=== PATIENT | female | born 1945 | race Caucasian/White ===

== ENCOUNTER 2016-08-28 08:36 | Emergency (ER) | payer OTHER ==
[2016-08-28] MEDS ORDERED: LIDOCAINE 5% 1 EA PATCH TD ONE (09:22)
--- NOTE | 2016-08-28 09:23 | EDPHY ---
H & P Stated Complaint: L side pain since 3AM. Denies trauma/injury. Time Seen by Provider: 08/28/16 08:45 HPI/ROS: CHIEF COMPLAINT: Left flank pain HISTORY OF PRESENT ILLNESS: This is a 70-year-old female with a history of breast cancer who is on tamoxifen. She is reportedly cancer-free with a mammogram scheduled this month. She presents today with 4-5 days of intermittent left flank pain. The pain has been increasing over the last few days and became severe yesterday. She describes it as sharp. It is located in the left flank/posterior lateral lower ribcage area. She has not seen any skin lesions. The pain is worsened by taking a deep breath or by putting weight on her left leg. She denies numbness, weakness, or bowel or bladder changes. She has not had any recent trauma. She did fall in a parking lot 2 weeks ago but had no back pain at the time. She denies chest pain or shortness of breath. REVIEW OF SYSTEMS: A ten point review of systems was performed and is negative with the exception of the items mentioned in the HPI. In addition she reports chronic constipation. She last moved her bowels 2 days ago. - Personal History Current Tetanus Diphtheria and Acellular Pertussis (TDAP): Yes Tetanus Vaccine Date: within 10 years - Medical/Surgical History Hx Asthma: No Hx Chronic Respiratory Disease: No Hx Diabetes: No Hx Cardiac Disease: No Hx Renal Disease: No Hx Cirrhosis: No Hx Alcoholism: No Hx HIV/AIDS: No Hx Splenectomy or Spleen Trauma: No Other PMH: Hypothyroidism. R breast cancer with lumpectomy and lymph node removal on tamoxifen - Social History Smoking Status: Former smoker (Quit over 30 years ago.) Alcohol Use: Occasionally (Wine with dinner.) Additional Social History: She lives with her . They are both retired. 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 - Physical Exam Exam: General Appearance: Alert. Vital signs reviewed. Blood pressure 147/89. Afebrile. Eyes: Pupils equal and round, no conjunctival injection, no discharge. Anicteric. ENT, Mouth: Mucous membranes are moist, no oropharyngeal erythema or edema. Neck: No lymphadenopathy, supple. Respiratory: Lungs are clear to auscultation; no wheezes, rales, or rhonchi. Cardiovascular: Regular rate and rhythm; no murmur, rub, or gallop. Thorax: She has tenderness over the posterior lateral left lower ribcage extending lower onto her flank region. No crepitus. Gastrointestinal: Abdomen is soft and nontender, no masses or organomegaly, bowel sounds normal. Skin: Warm and dry, no rashes on exposed skin, normal color. Specifically, no vesicular or other lesions noted on the left back or abdomen. Back: Nontender to palpation over the thoracolumbar spine. No CVAT. Extremities: No lower extremity edema, no calf tenderness or swelling. Neurological: Alert and oriented. Moving all four extremities easily and equally. Strength is 5 over 5 bilaterally with testing of all major motor groups in the lower extremities. Sensation is intact to light touch over both lower extremities. Gait is normal. Psychiatric: Normal affect. Constitutional: Initial Vital Signs Temperature (C) 36.4 C 08/28/16 08:40 Heart Rate 88 08/28/16 08:40 Respiratory Rate 18 08/28/16 08:40 Blood Pressure 147/89 H 08/28/16 08:40 O2 Sat (%) 98 08/28/16 08:40 O2 Delivery Mode Room Air Allergies/Adverse Reactions: nitrofurantoin macrocrystalline [From Macrodantin] Allergy (Severe, Verified 06/11 08:53) JAUNDICE Sulfa (Sulfonamide Antibiotics) Allergy (Severe, Verified 08/28/16 08:53) JAUNDICE adhesive tape Allergy (Intermediate, Verified 08/28/16 08:53) TEARS SKIN OFF ibuprofen Allergy (Intermediate, Verified 08/28/16 08:53) BACKACHE/STOMACH ACHE CRAB Allergy (Severe, Uncoded 08/28/16 08:53) Anaphylaxis LOBSTER Allergy (Severe, Uncoded 08/28/16 08:53) Anaphylaxis Home Medications: Medication Instructions Recorded Levothyroxine Sodium 08/28/16 Lidocaine 5% [Lidoderm 5% Patch 1 ea TD DAILY PRN #7 patch 08/28/16 (*)] Tamoxifen Citrate 08/28/16 Medical Decision Making - Diagnostics Imaging Results: Imaging Impressions Chest X-Ray 08/28/16 09:22 Impression: 1. COPD. 2. Fiducials in the right middle lobe. 3. No definite pneumonia, pleural effusion or pneumothorax. 4. Recommend follow-up CT chest. Findings and recommendations discussed with Emergency Department physician, Heather Mejia at 0946 hour, 08/28/2016. Final report concurs with initial preliminary interpretation. Abdomen/Pelvis CT 08/28/16 11:05 Impression: 1. No nephrolithiasis or hydronephrosis. 2. Suspect sacral metastasis to S2 and S3. 3. Recommend MRI of the sacrum and consider nuclear medicine whole body PET scan imaging for further evaluation. Attention: This CT examination is specifically designed to evaluate patients who are clinically suspected of having acute obstructive uropathy. This examination does not use radiographic contrast, and as such, provides only a limited evaluation of the abdomen, pelvis and retroperitoneum. If there is further clinical suspicion for pathological conditions other than obstructive uropathy, a complete CT evaluation of the abdomen and pelvis utilizing intravenous, oral, and rectal contrast should be considered. Findings and recommendations discussed with Emergency Department physician, Heather Mejia at 1150 hour, 08/28/2016. Final report concurs with initial preliminary interpretation. Findings and recommendations discussed with Dr. Kishor Aguiar at 1300 hour, 08/28/2016. Final report concurs with initial preliminary interpretation. Imaging: Discussed imaging studies w/ pool servicer Radiologist ED Course/Re-evaluation: This is a 70-year-old female with waxing and waning left flank pain. I do not see evidence of shingles on exam. She has had shingles shot (in fact, she has had two). She has no history of kidney stones but portions of her history or suggestive of ureterolithiasis. Urinalysis will be obtained. She describes the pain as pleuritic and pulmonary embolus is also a possibility. There is nothing in her history sit to suggest an infectious process. A chest x-ray is being obtained--I would like to assess for rib abnormality, such as bony metastases, and for pneumothorax. Labs are sent. She does not want to take opiate pain medication at this point in time. A lidocaine patch is being placed. Chest x-ray does not show rib abnormality such as fracture or metastatic lesion. These are not formal rib films. No infiltrate. No pneumothorax. The chest x-ray does not explain her pain. She has a modified Wells score of 0, making pulmonary embolism unlikely. D- dimer is within the normal range. I do not feel that CTA is warranted in this setting. Re-evaluated at 10:50 a.m.. She is now able to lie on the gurney. She reports some relief with the lidocaine patch. CBC, chemistries, and UA reviewed. There is no blood in her urine. However, 15% of people with kidney stones do not have hematuria. There is no evidence of urinary tract infection so I do not suspect pyelonephritis. She has agreed to undergo CT scanning of the abdomen and pelvis to assess for CT scan. We discussed this study, including the fact that it involves radiation. I spoke with Dr. Tristin Carlin about the CT scan. No evidence of kidney stone. However, there is a sacral mass, soft tissue, at S2-S3 with a leftward orientation. I relayed these findings to the patient and her . This mass is suspicious for metastatic disease. She is offered hospitalization for pain control and further workup of this soft tissue mass but prefers to return home. She does not want a prescription for opiate pain medication. She would like to continue with lidocaine patches and will also use Tylenol. I have advised her to follow up with Dr. Aguiar and I have apprised him of her visit today. She will call his office tomorrow to schedule an appointment. Differential Diagnosis: Flank pain including but not limited to malignancy, musculoskeletal causes, kidney stone, pyelonephritis, shingles, and intra-abdominal causes such as diverticulitis and appendicitis. - Data Points Laboratory Results: Laboratory Results 08/28/16 09:31 08/28/16 09:31 08/28/16 08/28/16 08/28/16 09:55 09:31 09:31 WBC RBC Hgb Hct MCV MCH MCHC RDW Plt Count MPV Neut % (Auto) Lymph % (Auto) Spalding % (Auto) Eos % (Auto) Baso % (Auto) Nucleat RBC Rel Count Absolute Neuts (auto) Absolute Lymphs (auto) Absolute Monos (auto) Absolute Eos (auto) Absolute Basos (auto) Absolute Nucleated RBC Immature Gran % Immature Gran # D-Dimer 0.30 ug/mLFEU ug/mLFEU (0.00-0.50) Sodium 135 mEq/L mEq/L (134-144) Potassium 4.8 mEq/L mEq/L (3.5-5.2) Chloride 102 mEq/L mEq/L (97-110) Carbon Dioxide 18 mEq/l L mEq/l (22-31) Anion Gap 15 mEq/L mEq/L (8-16) BUN 8 mg/dL mg/dL (7-23) Creatinine 0.9 mg/dL mg/dL (0.6-1.0) Estimated GFR > 60 Glucose 96 mg/dL mg/dL (70-100) Calcium 9.3 mg/dL mg/dL (8.5-10.4) Urine Color YELLOW Urine Appearance CLEAR Urine pH 6.5 (5.0-7.5) Ur Specific Treichlers <= 1.005 (1.002-1.030) Urine Protein NEGATIVE (NEGATIVE) Urine Ketones 1+ H (NEGATIVE) Urine Blood NEGATIVE (NEGATIVE) Urine Nitrate NEGATIVE (NEGATIVE) Urine Bilirubin NEGATIVE (NEGATIVE) Urine Urobilinogen 0.2 EU EU (0.2-1.0) Ur Leukocyte Esterase NEGATIVE (NEGATIVE) Urine Glucose NEGATIVE (NEGATIVE) 08/28/16 09:31 WBC 7.36 10^3/uL 10^3/uL (3.80-9.50) RBC 3.85 10^6/uL L 10^6/uL (4.18-5.33) Hgb 12.8 g/dL g/dL (12.6-16.3) Hct 36.7 % L % (38.0-47.0) MCV 95.3 fL fL (81.5-99.8) MCH 33.2 pg pg (27.9-34.1) MCHC 34.9 g/dL g/dL (32.4-36.7) RDW 12.8 % % (11.5-15.2) Plt Count 312 10^3/uL 10^3/uL (150-400) MPV 9.6 fL fL (8.7-11.7) Neut % (Auto) 65.4 % % (39.3-74.2) Lymph % (Auto) 21.3 % % (15.0-45.0) Spalding % (Auto) 10.3 % % (4.5-13.0) Eos % (Auto) 1.9 % % (0.6-7.6) Baso % (Auto) 0.7 % % (0.3-1.7) Nucleat RBC Rel Count 0.0 % % (0.0-0.2) Absolute Neuts (auto) 4.81 10^3/uL 10^3/uL (1.70-6.50) Absolute Lymphs (auto) 1.57 10^3/uL 10^3/uL (1.00-3.00) Absolute Monos (auto) 0.76 10^3/uL 10^3/uL (0.30-0.80) Absolute Eos (auto) 0.14 10^3/uL 10^3/uL (0.03-0.40) Absolute Basos (auto) 0.05 10^3/uL 10^3/uL (0.02-0.10) Absolute Nucleated RBC 0.00 10^3/uL 10^3/uL (0-0.01) Immature Gran % 0.4 % % (0.0-1.1) Immature Gran # 0.03 10^3/uL 10^3/uL (0.00-0.10) D-Dimer Sodium Potassium Chloride Carbon Dioxide Anion Gap BUN Creatinine Estimated GFR Glucose Calcium Urine Color Urine Appearance Urine pH Ur Specific Treichlers Urine Protein Urine Ketones Urine Blood Urine Nitrate Urine Bilirubin Urine Urobilinogen Ur Leukocyte Esterase Urine Glucose Medications Given: Discontinued Medications Lidocaine (Lidoderm 5%) 1 ea TD EDNOW ONE Stop: 08/28/16 09:23 Last Admin: 08/28/16 09:40 Dose: 1 ea Departure - Departure Disposition: Home, Routine, Self-Care Clinical Impression: Flank pain, Sacral mass Condition: Good Instructions: Flank Pain (ED) Additional Instructions: As we discussed, this CT scan shows a soft tissue mass involving your sacrum. I do not know whether this is what is causing your pain but it certainly seems like a possibility. I recommend that you call Dr. Aguiar's office tomorrow and schedule a follow-up or other imaging as recommended. Continue with lidocaine patches as prescribed. I also recommend that you take Tylenol, acetaminophen, 650 mg every, every 4-6 hours while awake. See if this helps your pain. If you have any new or concerning symptoms--fever, new numbness or weakness in your legs, change in your bowels or bladder, unbearable pain--please return for a re-evaluation. Referrals: Jose Shahid MD [Primary Care Provider] - As per Instructions Kishor Aguiar MD [Medical Doctor] - As per Instructions Prescriptions: Lidocaine 5% [Lidoderm 5% Patch (*)] 1 ea TD DAILY PRN #7 patch PRN Reason: flank pain
[2016-08-28 09:36] LABS: % IMMATURE GRANULYOCYTES 0.4 % (0.0-1.1); ABSOLUTE IMMATURE GRANULOCYTES 0.03 10^3/uL (0.00-0.10); ADD DIFF? NO; ADD MORPH? NO; ADD SCAN? NO; ATYPICAL LYMPHOCYTE FLAG 20 (0-99); FRAGMENT RBC FLAG 0 (0-99); HEMATOCRIT 36.7 % (38.0-47.0); HEMOGLOBIN 12.8 g/dL (12.6-16.3); LEFT SHIFT FLG 0 (0-99); LIPEMIA HEMOLYSIS FLAG 90 (0-99); MEAN CELL HEMOGLOBIN 33.2 pg (27.9-34.1); MEAN CELL HEMOGLOBIN CONCENTR. 34.9 g/dL (32.4-36.7); MEAN CELL VOLUME 95.3 fL (81.5-99.8); MEAN PLATELET VOLUME 9.6 fL (8.7-11.7); PLATELET CLUMPS FLAG 0 (0-99); PLATELET COUNT 312 10^3/uL (150-400); RED BLOOD CELL COUNT 3.85 10^6/uL (4.18-5.33); RED CELL DISTRIBUTION WIDTH 12.8 % (11.5-15.2)
[2016-08-28 09:49] LABS: ANION GAP 15 mEq/L (8-16); CALCIUM 9.3 mg/dL (8.5-10.4); CARBON DIOXIDE 18 mEq/l (22-31); CHLORIDE 102 mEq/L (97-110); CREATININE 0.9 mg/dL (0.6-1.0); GLOMERULAR FILTRATION RATE > 60; GLUCOSE 96 mg/dL (70-100); POTASSIUM 4.8 mEq/L (3.5-5.2); SODIUM 135 mEq/L (134-144)
[2016-08-28 10:02] LABS: COLOR YELLOW; LEUKOCYTE ESTERASE,URINE NEGATIVE (NEGATIVE); NITRITE,URINE NEGATIVE (NEGATIVE); PH,URINE 6.5 (5.0-7.5)
[2016-08-28 12:32] VITALS: BP 149/90; PULSE 81; RESP 16; TEMP 98.6; O2SAT 95
[2016-08-28] MEDS ORDERED: PATCH REMOVAL 1 EA PATCH TD SCH (21:00)
== END 2016-08-28 12:42 | disposition home or self-care (01) ==
LOC: CED 08:36
DX: R22.2 Localized swelling, mass and lump, trunk (principal); Z85.3 Personal history of malignant neoplasm of breast; Z87.891 Personal history of nicotine dependence
CPT/HCPCS: 71020-PO; 74176-PO; 80048-PO; 81003-PO; 85025-PO; 85378-PO

== ENCOUNTER → 2016-08-30 | Outpatient (CLI) | payer OTHER | LOC: FIMAGING 08:32 | PROVIDERS: ATTEND Internal Medicine Hematology & Oncology | DX: N64.4 Mastodynia (principal); Z85.3 Personal history of malignant neoplasm of breast | CPT/HCPCS: G0204 ==

== ENCOUNTER → 2016-09-20 | Day surgery (SDC) | payer OTHER ==
[~2016-09-20] MED LIST: ACETAMINOPHEN 325 MG TAB PO PRN; BUPIVACAINE 0.25% 30 ML SDV ONE; BUPIVACAINE 0.5% 10 ML SDV ONE; FLUMAZENIL 0.5 MG/5 ML MDV IVP ONE; LIDOCAINE 1% 300 MG/30 ML SDV ONE; MIDAZOLAM 2 MG/2 ML VIAL ONE; NALOXONE HCL 0.4 MG/ML INJ ONE; ONDANSETRON 4 MG/2 ML VIAL IVP PRN; fentaNYL 100 MCG/2 ML INJ ONE
[2016-09-20 11:31] VITALS: BP 154/66; O2SAT 95
== END | disposition home or self-care (01) ==
LOC: FIMAGING 07:44
PROVIDERS: ATTEND Internal Medicine Hematology & Oncology
PROC: 0QB13ZX Excision of Sacrum, Percutaneous Approach, Diagnostic (ICD-10-PCS; principal; 2016-09-20 10:30)
DX: C79.51 Secondary malignant neoplasm of bone (principal); Z85.3 Personal history of malignant neoplasm of breast; Z85.858 Personal history of malignant neoplasm of other endocrine glands; Z87.891 Personal history of nicotine dependence
CPT/HCPCS: J2250; J2310; J3010

== ENCOUNTER 2016-11-10 09:33 | Inpatient (IN) | payer OTHER ==
[2016-11-10] MEDS ORDERED: HYDROmorphONE/DILAUDID 1 MG/ML INJ IVP PRN ×2 (09:47→12:30)
[2016-11-10] MEDS ORDERED: DEXAMETHASONE 4 MG/ML VIAL IVP ONE (09:50)
--- NOTE | 2016-11-10 09:59 | EDPHY ---
H & P Stated Complaint: Sacral Pain Time Seen by Provider: 11/10/16 09:51 HPI/ROS: HPI: This is a 70-year-old female who presents with Chief Complaint: Sacral pain Location: Sacrum Quality: Pain Duration: Several weeks Signs and Symptoms: No bleeding, no radiation, no numbness, no weakness, no tingling, no incontinence, + decreased range of motion, + inability stand Timing: Worsening Severity: Moderate to Severe Context: Patient has a history of breast cancer diagnosis February 2011 of invasive ductal carcinoma; status post partial breast radiation; status post axillary dissection and chemotherapy. She has taken tamoxifen 20 mg a day. She had a PET scan September 04, 2016 to evaluate for metastatic disease which showed intrathoracic metastatic disease with new adenopathy; right long topical or pleural parenchymal consolidation; widespread osseous metastatic disease with the largest lesion seen in the sacrum. Patient reports over the last 1-2 weeks she started to develop sacral pain. This morning it was so severe that she is unable to get out of bed. Her called EMS. She has oxycodone that did not relieve the pain. Modifying Factors: Oxycodone no relief Comment: ROS: Constitutional: No fever, no chills, no weight loss Eyes: No blurred vision Respiratory: No shortness of breath, no cough Cardiovascular: No chest pain Gastrointestinal: No nausea, no vomiting no diarrhea Genitourinary: No dysuria Extremities: No myalgias Neurologic: No weakness, no numbness Skin: No rashes Hematologic: No bruising, no bleeding Source: Patient - Personal History Current Tetanus/Diphtheria Vaccine: Yes Current Tetanus Diphtheria and Acellular Pertussis (TDAP): Yes Tetanus Vaccine Date: within 10 years - Medical/Surgical History Hx Asthma: No Hx Chronic Respiratory Disease: No Hx Diabetes: No Hx Cardiac Disease: No Hx Renal Disease: No Hx Cirrhosis: No Hx Alcoholism: No Hx HIV/AIDS: No Hx Splenectomy or Spleen Trauma: No Other PMH: Hypothyroidism. R breast cancer with lumpectomy and lymph node removal on tamoxifen - Social History Smoking Status: Former smoker Constitutional: Initial Vital Signs Temperature (C) 36.8 C 11/10/16 09:39 Heart Rate 102 H 11/10/16 09:39 Respiratory Rate 20 11/10/16 09:39 Blood Pressure 175/116 H 11/10/16 09:39 O2 Sat (%) 95 11/10/16 09:39 O2 Delivery Mode Room Air Allergies/Adverse Reactions: nitrofurantoin macrocrystalline [From Macrodantin] Allergy (Severe, Verified 16:46) JAUNDICE Sulfa (Sulfonamide Antibiotics) Allergy (Severe, Verified 09/13/16 16:46) JAUNDICE adhesive tape Allergy (Intermediate, Verified 09/13/16 16:46) TEARS SKIN OFF ibuprofen Allergy (Intermediate, Verified 09/13/16 16:46) BACKACHE/STOMACH ACHE CRAB Allergy (Severe, Uncoded 09/13/16 16:46) Anaphylaxis LOBSTER Allergy (Severe, Uncoded 09/13/16 16:46) Anaphylaxis Home Medications: Medication Instructions Recorded Levothyroxine Sodium 08/28/16 Tamoxifen Citrate 20 mg PO DAILY 08/28/16 B Complex 09/13/16 MAGNESIUM 09/13/16 Ocuvite Eye + Multi Tablet 09/13/16 Medical Decision Making ED Course/Re-evaluation: No signs of neurovascular compromise/tenting of skin/compartment syndrome/ extremities and joints examined above and below area of concern and are neurovascularly intact. Given IV Decadron. Patient politely refused any IV opiates. Will need MRI to further evaluate as an inpatient 950: ED decision to consult for admission; Spoke with oncology Dr. Lopez who agrees with admission, plan of care. Spoke with hospitalist, Melba Alvares, who kindly agrees to admit patient under Dr. Perez who will provide further care. Differential Diagnosis: Back pain including but not limited to muscular pain, herniated disc, spine fracture, intra-abdominal causes and urinary tract infection. Departure - Departure Disposition: [facility] Inpatient Acute Clinical Impression: Metastatic breast cancer, Malignant neoplasm of sacrum
[2016-11-10] MEDS ORDERED: ACETAMINOPHEN 325 MG TAB PO PRN (12:30)
[2016-11-10] MEDS ORDERED: ONDANSETRON 4 MG/2 ML VIAL IVP PRN (12:30)
[2016-11-10] MEDS ORDERED: oxyCODONE IR 5 MG TAB PO PRN (12:30)
[2016-11-10] MEDS ORDERED: LORazepam 0.5 MG TAB PO PRN (12:30)
[2016-11-10] MEDS ORDERED: ONDANSETRON DISINTEGRATING 4 MG TAB PO PRN (12:30)
[2016-11-10] MEDS ORDERED: NS 1,000 ML IV SCH (12:45)
--- NOTE | 2016-11-10 15:38 | GHP ---
[f rep st] HISTORY AND PHYSICAL DATE OF ADMISSION: 11/10/2016 CHIEF COMPLAINT: Back and sacral pain. HISTORY OF PRESENT ILLNESS: The patient is a 70-year-old female with a history of breast cancer diagnosed in 2010, who presents to the emergency department with uncontrolled pain secondary to extensive osseous metastasis in the spine. Since her diagnosis, she underwent lumpectomy and radical axillary dissection, radiation and chemotherapy. A PET scan in August 2016 revealed intrathoracic metastases with new adenopathy and extensive bony metastasis, most severe in the sacrum. She has had severe pain which she states is not responsive to opiates. She has been tried on oxycodone and morphine without effect. She describes her pain as being in her butt cheek and feeling like a charley horse. There is no further radiation down her leg. Her pain is quite positional. She is comfortable at rest, flat on her back, but has severe pain with any attempts to sit up. This morning, she was essentially unable to get out of bed , shower or toilet, and fell to the bathroom floor and was unable to get up. Her called EMS, and she presented to the emergency department. She is quite frustrated with her difficulty with pain relief. She is followed by Dr. Kishor Aguiar in the [facility] and is currently undergoing chemotherapy including Ibrance and Faslodex. She is also treated with Zometa. She denies headaches, fevers, chest pain, shortness of breath, abdominal pain or urinary symptoms. She does complain of constipation as a side effect from the opiates. She has been reluctant to use stool softeners or laxatives, as she is afraid to have a bowel movement due to the pain. She is intermittently tearful and angry during her visit. She feels significant loss in the quality of her life. She is admitted to the hospital essentially for pain control. PAST MEDICAL HISTORY: Breast cancer diagnosed in January 2011 with recurrent disease including extensive osseous metastases on PET scan in August 2016. MEDICATIONS: Please see DDN for completed outpatient medication list. ALLERGIES: Nitrofurantoin, sulfa, adhesive tape, ibuprofen, crab and lobster. FAMILY HISTORY: Reviewed and noncontributory. SOCIAL HISTORY: The patient is a former smoker. She reports occasional alcohol use. She lives independently with her , who is present at the bedside. She is retired. REVIEW OF SYSTEMS: A 10-point review of systems is performed and is negative, except as per HPI. OBJECTIVE: VITAL SIGNS: Temperature is 36.3, blood pressure 119/65, heart rate 76, respiratory rate 18. She is 96% on 2 L. GENERAL: The patient is awake, alert, oriented, in no acute distress. HEENT: Head is atraumatic, normocephalic. Pupils equal, round, react to light. Extraocular muscles intact. Oropharynx clear. Mucous members are moist. NECK: Supple, without JVD. HEART: Regular rate and rhythm without murmur. LUNGS: Clear to auscultation bilaterally. ABDOMEN: Soft, mildly distended, nontender. She has normoactive bowel sounds in all 4 quadrants. EXTREMITIES: Without cyanosis , clubbing or edema. NEUROLOGIC: Grossly nonfocal. Her sensation is intact in distal bilateral extremities. LABORATORY DATA: CBC and complete metabolic panel are pending. ASSESSMENT AND PLAN: The patient is a 70-year-old female with a history of metastatic breast cancer, who is admitted to the hospital for pain control in the setting of extensive bony metastases to the spine and sacrum. 1. Acute on chronic back and sacral pain secondary to metastatic disease. Check MRI lumbar and pelvis per onc recommendations. The patient has not responded to opioid therapy. I query if there is an element of neuropathic pain and will start her on gabapentin. Will continue her morphine, and add IV Dilaudid as well as muscle relaxer to see if this is helpful. PT and OT consults are requested. She has already been treated with high-dose Decadron and has recently tapered off this. She did receive a dose of 8 mg of IV Decadron in the emergency department. Further steroid tx per onc. 2. Metastatic breast cancer. The patient is followed by Dr. Kishor Aguiar. She will be continued on her daily dose of Ibrance. She is also receiving Faslodex and Zometa per Oncology. Oncology has been consulted, and Dr. Ciera Lopez will see the patient. 3. Hypothyroidism. Patient will be continued on Synthroid. 4. Deep venous thrombosis prophylaxis with Lovenox. 5. Code status. Patient is full code. 6. Disposition. Patient is admitted to inpatient status, will likely require greater than 48 hours hospitalization for pain control and acute PT/OT. Palliative consult requested. This was discussed with pt by ROBERT. /[id number]/MODL MTDD
[2016-11-10] MEDS: METHOCARBAMOL 750 MG TAB PO SCH ×3 (15:40→22:53)
[2016-11-10] MEDS: GABAPENTIN 300 MG CAP PO SCH ×2 (15:40→20:59)
[2016-11-10 15:43] LABS: % IMMATURE GRANULYOCYTES 1.9 % (0.0-1.1); ABSOLUTE IMMATURE GRANULOCYTES 0.16 10^3/uL (0.00-0.10); ADD DIFF? NO; ADD MORPH? NO; ADD SCAN? NO; ATYPICAL LYMPHOCYTE FLAG 0 (0-99); FRAGMENT RBC FLAG 10 (0-99); HEMATOCRIT 35.4 % (38.0-47.0); HEMOGLOBIN 12.1 g/dL (12.6-16.3); LEFT SHIFT FLG 20 (0-99); LIPEMIA HEMOLYSIS FLAG 90 (0-99); MEAN CELL HEMOGLOBIN 33.2 pg (27.9-34.1); MEAN CELL HEMOGLOBIN CONCENTR. 34.2 g/dL (32.4-36.7); MEAN PLATELET VOLUME 9.2 fL (8.7-11.7); PLATELET CLUMPS FLAG 0 (0-99); PLATELET COUNT 136 10^3/uL (150-400); RED BLOOD CELL COUNT 3.65 10^6/uL (4.18-5.33); RED CELL DISTRIBUTION WIDTH 13.2 % (11.5-15.2)
[2016-11-10] MEDS: morphINE SR 15 MG TAB PO SCH (15:47)
[2016-11-10 16:03] LABS: ALANINE AMINOTRANSFERASE 39 IU/L (9-52); ALBUMIN 3.1 g/dL (3.5-5.0); ALKALINE PHOSPHATASE 93 IU/L (38-126); ANION GAP 9 mEq/L (8-16); ASPARTATE AMINOTRANSFERASE 41 IU/L (14-46); BILIRUBIN,TOTAL 1.3 mg/dL (0.1-1.4); CALCIUM 7.8 mg/dL (8.5-10.4); CARBON DIOXIDE 20 mEq/l (22-31); CHLORIDE 100 mEq/L (97-110); CREATININE 0.8 mg/dL (0.6-1.0); GLOMERULAR FILTRATION RATE > 60; GLUCOSE 134 mg/dL (70-100); POTASSIUM 4.3 mEq/L (3.5-5.2); SODIUM 129 mEq/L (134-144); TOTAL PROTEIN 5.5 g/dL (6.3-8.2)
--- NOTE | 2016-11-10 16:56 | ASMTCMCOM ---
CM Note CM Note Notes: Pt admitted with metastatic breast cancer. Pt is having uncontrolled pain. Met with pt and for support and resources. Pt had asked about support for her . Gave her info on the caregiver suuport group as well as handouts and a book. asked about pvt duty as he is planning an out of town trip in a few weeks. Gave pvt duty list and made a request for help from the [employer]. Pt's DC needs are unclear at this time. mentioned they may be interested in home care depending on what her DC needs will be. Also suggested that pt may benefit from palliative care in the home. Dr Perez will place an order for the palliative care team to see pt on Saturday. Date Signed: 11/10/2016 04:55 PM Electronically Signed By:Elo Marks LCSW
[2016-11-10] MEDS ORDERED: GADOBUTROL 10 ML VIAL IVP ONE (17:48)
[2016-11-11] MEDS: morphINE SR 15 MG TAB PO SCH ×2 (01:42→19:00)
[2016-11-11 05:24] LABS: % IMMATURE GRANULYOCYTES 1.3 % (0.0-1.1); ADD DIFF? NO; ADD MORPH? NO; ADD SCAN? NO; ATYPICAL LYMPHOCYTE FLAG 0 (0-99); FRAGMENT RBC FLAG 0 (0-99); HEMATOCRIT 40.3 % (38.0-47.0); HEMOGLOBIN 13.6 g/dL (12.6-16.3); LEFT SHIFT FLG 10 (0-99); LIPEMIA HEMOLYSIS FLAG 80 (0-99); MEAN CELL HEMOGLOBIN 33.5 pg (27.9-34.1); MEAN CELL HEMOGLOBIN CONCENTR. 33.7 g/dL (32.4-36.7); MEAN CELL VOLUME 99.3 fL (81.5-99.8); MEAN PLATELET VOLUME 9.3 fL (8.7-11.7); PLATELET CLUMPS FLAG 30 (0-99); PLATELET COUNT 114 10^3/uL (150-400); RED BLOOD CELL COUNT 4.06 10^6/uL (4.18-5.33); RED CELL DISTRIBUTION WIDTH 13.3 % (11.5-15.2)
[2016-11-11] MEDS ORDERED: LEVOTHYROXINE 88 MCG TAB PO SCH (06:00)
[2016-11-11 06:50] LABS: ALANINE AMINOTRANSFERASE 39 IU/L (9-52); ALBUMIN 3.5 g/dL (3.5-5.0); ALKALINE PHOSPHATASE 102 IU/L (38-126); ANION GAP 14 mEq/L (8-16); ASPARTATE AMINOTRANSFERASE 48 IU/L (14-46); BILIRUBIN,TOTAL 1.3 mg/dL (0.1-1.4); CALCIUM 8.5 mg/dL (8.5-10.4); CARBON DIOXIDE 15 mEq/l (22-31); CHLORIDE 105 mEq/L (97-110); CREATININE 0.8 mg/dL (0.6-1.0); GLOMERULAR FILTRATION RATE > 60; GLUCOSE 94 mg/dL (70-100); POTASSIUM 5.1 mEq/L (3.5-5.2); SODIUM 134 mEq/L (134-144); TOTAL PROTEIN 6.4 g/dL (6.3-8.2)
[2016-11-11] MEDS ORDERED: VIT D PO SCH (09:00)
[2016-11-11] MEDS ORDERED: CALCIUM CITRATE PO SCH (09:00)
[2016-11-11] MEDS: LEVOTHYROXINE 88 MCG TAB PO SCH (09:10)
[2016-11-11] MEDS: GABAPENTIN 300 MG CAP PO SCH ×3 (09:11→20:39)
[2016-11-11] MEDS: ENOXAPARIN 40 MG/0.4 ML SYR SC SCH (09:11)
[2016-11-11] MEDS: METHOCARBAMOL 750 MG TAB PO SCH ×3 (09:11→20:37)
[2016-11-11] MEDS ORDERED: morphINE SR 15 MG TAB PO ONE (10:00)
[2016-11-11] MEDS: PALBOCICLIB 125 MG PO SCH (10:09)
--- NOTE | 2016-11-11 11:27 | WOCRNPDOC ---
PRAB[facility] Advanced Assessment Note - Skin Integrity Problem, Advanced Assess Right Buttock Blister Dressing Type: Allevyn Life Dressing Description: Intact Exudate Amount: Scant Exudate Color: Reddish/Yellow Exudate Characteristic(s): Serosanguinous Integumentary Issue Intervention: Visualized Under Dressing Aydee Wound Tissue: Blanching, Intact Aydee Wound Swelling: None Wound Bed Color: Red Wound Bed Constitution: Smooth Tissue (epthilelium, non-granulating), De-roofed Serous Blister Wound Edges: Well Defined Site Measurement - Head-to-Toe Length X Width X Depth (cm): 1.2cmx1.5cmx0.1cm Skin Integrity Problem Comment: Partial-thickness tissue loss noted over medial buttock, friable loose tissue noted along margins indicative of de-roofed blister. Per patient's report, this injury is the result of a burn patient sustained while using a heating pad for comfort. The appearance of the wound supports this report. Wound bed comprised of 100% bright, red epithelial tissue. Aydee-wound skin is intact throughout and blanching. Continue w/ local tx initiated by nursing, Silvasorb gel and Allevyn Life. Patient says that site is not particularly painful, and off-loading this wound is at her discretion. Report given to loop tacker Lissette. No need for wound care to follow this wound; please reconsult if site worsens. Right Lower Arm Abrasion Dressing Type: Band Aid Dressing Description: Intact Closure Description: Not Approximated Exudate Color: Yellow Exudate Characteristic(s): Serous Integumentary Issue Intervention: Dressing Applied Aydee Wound Tissue: Ecchymotic, Swollen (patient has mild lymphadema in this extremity r/t lymph node biopsy and lumpectomy.), Thin Aydee Wound Swelling: Mild Wound Bed Color: Yellow Wound Bed Constitution: Adhered Slough Site Odor: None Site Measurement - Head-to-Toe Length X Width X Depth (cm): 0.8cmx1.2cmx0.1cm Skin Integrity Problem Comment: Per patient report, this wound is a skin tear that occurred when patient's hand slipped off her WC and her R forearm scraped along the chair. She has been treating it w/ vaseline and a band-aid. When dressing removed today, the partial skin flap from the injury has adhered across 50% of the wound bed, but the remaining open wound is now slough-filled. Aydee-wound skin is both edematous and ecchymotic; per patient this is baseline for her. Recommend application of Therahoney gel to initiate autolysis of the slough, followed by skin tear protocol w/ non-adherent dressings. loop tacker Lissette present and assisting. Wound care does not need to follow ongoing; please reconsult as needed.
--- NOTE | 2016-11-11 11:35 | HOSPPROG ---
Hospitalist Progress Note Assessment/Plan: Acute on chronic back and sacral pain secondary to osseous metastases - Seems to be improving with Neurontin, will up-titrate to 300 mg TID. Cont MS Contin and Morphine IR prn. Stage IV breast cancer - MRI reviewed, extensive metastases. Cont current chemo regimen. Oncology to consult. Hypoxemia - check CXR, start IS, ?atelectasis. May need to r/o PE though no tachycardia or pleuritic symptoms. Thrombocytopenia - mild, plts remain >100, likely secondary to chemo. Follow Hypothyroidism - Cont Levothyroxine. Pressure injury of sacrum and heels - wound care following. Full code Dispo - cont inpt Subjective: PT reports ~50% improvement in pain. She was able to get up to commode today which is an improvement. Denies CP, SOB or pleuritic symptoms. No fevers or cough. Objective: Vital Signs Temp Pulse Resp BP Pulse Ox 36.3 C 74 22 H 106/74 98 11/11/16 09:00 11/11/16 09:00 11/11/16 09:00 11/11/16 09:00 11/11/16 09:00 Laboratory Results 11/11/16 05:00 11/11/16 05:00 11/10/16 11/11/16 11/12/16 05:59 05:59 05:59 Intake Total 700 Output Total 1000 Balance -300 - Physical Exam Constitutional: no apparent distress Eyes: PERRL Ears, Nose, Mouth, Throat: moist mucous membranes Cardiovascular: regular rate and rhythym Respiratory: no respiratory distress, clear to auscultation Gastrointestinal: normoactive bowel sounds, soft, non-tender abdomen Skin: warm Musculoskeletal: full muscle strength Neurologic: AAOx3 Psychiatric: interacting appropriately ICD10 Worksheet Patient Problems: Problems Problem Status Onset Malignant neoplasm of sacrum Acute Metastatic breast cancer Acute
[2016-11-11] MEDS: MAGNESIUM OXIDE 250 MG PO SCH (12:11)
[2016-11-11] MEDS: LUTEIN PO SCH (12:11)
[2016-11-11] MEDS: MINERALS PO SCH (12:11)
[2016-11-11] MEDS: VITS A C E PO SCH (12:11)
[2016-11-11] MEDS: CALCIUM CITRATE PO SCH (12:11)
[2016-11-11] MEDS: VIT D PO SCH (12:11)
--- NOTE | 2016-11-11 12:55 | GCON ---
[f rep st] CONSULTATION MEDICAL ONCOLOGY/HEMATOLOGY REQUESTING PHYSICIAN: Dr. Eugenia Perez. REASON FOR CONSULTATION: Patient known with ER positive metastatic breast cancer with mets to bone a nd thoracic lymphadenopathy, presents with intractable low back pain. HISTORY OF PRESENT ILLNESS: The patient is a 70-year-old, postmenopausal female, who was previously diagnosed with right-sided breast cancer in 2011. She had a T1c N0 cancer at that time. Brooks no mariana were negative. She had a low risk recurrence score and was treated with Arimidex and possibly tr ansitioned to exemestane. She had then an axillary recurrence and a full axillary lymph node dissect ion was recommended. This was performed in February 2012. She subsequently received radiation to thi s area and was then put on tamoxifen until more recently. PET-CT in August of 2016 shows intrathoracic metastatic disease with new adenopathy right lung apical p leural-parenchymal consolidation, inflammatory or neoplastic and an equivocal lesion versus physiolog ic modeling associated with background hepatic uptake. She also had widespread metastatic disease wi th the largest lesion seen in the sacrum. She completed 10 fractions of radiation to the sacral spin e for pain management and palliation, and this was completed October 25. She was on dexamethasone twi ce a day up until recently. She is now on morphine sulphate Contin, and morphine for breakthrough pa in. Her pain has continued despite radiation. She presented to the emergency room yesterday with intract able pain and was admitted for pain management. I will mention that she started cycle 1 day 1 of Zometa as well as cycle 1 day 1 of fulvestrant and I brance on October 30, 2016, which is a new treatment for her, for endocrine refractory disease. REVIEW OF SYSTEMS: As per HPI. Otherwise denies significant shortness of breath. She does not use oxygen at home. She denies neurologic symptoms, abdominal pain, nausea, vomiting, or other bone pain . She denies bowel or bladder incontinence, numbness or tingling of lower extremities. However on f urther discussion, she reports the cramping like sensation in her right gluteus reva. It seems to radiate down the right leg. PAST MEDICAL HISTORY: Breast cancer as detailed above. MEDICATIONS: Reviewed in EMR. ALLERGIES: Also reviewed. FAMILY HISTORY: Noncontributory. SOCIAL: The patient is a former smoker. Occasional alcohol use. She lives independently with her h usband who is present at bed side. She is retired. PHYSICAL EXAM: VITAL SIGNS: Show blood pressure 106/74, pulse of 74, respiration rate 22, saturatin g 98% on 2 L nasal cannula, temp is 36.3. GENERAL: Looks her stated. Fatigued appearing. HEENT: Anicteric. Oropharynx is clear. HEART: Regular rate and rhythm. CHEST: Moving air well bilateral ly. She has a port in left upper chest. ABDOMEN: Soft, nontender. No mass is palpated. EXTREMITI ES: Lower extremities no significant edema. NEUROLOGIC: Nonfocal. LABORATORY ANALYSIS: CBC shows a white blood cell count of 7.5, hemoglobin 13, platelet count of 114 ,000. Sodium 134, BUN 12, creatinine 0.8, glucose 94, total bilirubin 1.3, AST 48, ALT 39, alkaline phosphatase 102, total protein 6.4, albumin 3.5. IMAGING: On this hospital admission include a lumbar spine and pelvic MRI. Lumbar spine showed exte nsive osseous metastatic disease throughout lumbar spine and sacrum. She had disc desiccation and mi ld annular bulging from L3-L5. No disc herniation or stenosis at L5-S1. No cord impingement. Her p elvic MRI demonstrates extensive osseous metastatic disease throughout the sacrum, pelvis, lower spin e and proximal femurs. Greatest degree of involvement is upper sacrum bilaterally. No pathologic fr acture. Soft tissue metastatic lesion identified. ASSESSMENT AND PLAN: The patient is a 70-year-old, postmenopausal woman, now with a diagnosis of sta ge IV, ER positive metastatic breast cancer to bone and lymph nodes. Most recently has been started on first-line fulvestrant and Ibrance on October 30, 2016. She also was initiated on Zometa on Oct due to extensive osseous metastasis. She presents today with intractable bone pain. Low back pain/bone pain, status post palliative XRT and steroids. She was put on Neurontin yesterday and pain is somewhat subsided. Discussed with her today that I do not see any evidence of cord comp ression and I do not see any epidural tumor extension. I believe that the tumor is compressing on ne rve roots possibly leading to the deep gluteus reva pain as well as sciatica radiating down the ri ght leg. We will discuss with Radiation Oncology whether or not the area at L3-L5 may be contributin g to this pain, and whether this is worse investigating for more palliative XRT. In the meantime, we will continue pain management here. I told the patient that this in no way suggests progression and in fact, it is way too early to make that determination as she only started this new therapy 2 weeks ago. Her next dose of Zometa will be due in November. Stage IV ER positive breast cancer. This is endocrine refractory and therefore hopefully CK 4-6 inhi bitors such as Ibrance will do a good job in controlling the progressive disease. Likely will plan r epeat PET in late November or early December, based on when she initiated the therapy. Aside from bon e pain, she is asymptomatic. Thrombocytopenia and mild anemia. This is due to Ibrance. This is given on a 21 day cycle. She is in her second week currently. Pain management. Agree with current pain management per Internal Medicine. Appreciate their help in her care. /[id number]/MODL
[2016-11-12] MEDS: LEVOTHYROXINE 88 MCG TAB PO SCH (04:14)
[2016-11-12 04:27] LABS: HEMATOCRIT 31.3 % (38.0-47.0); HEMOGLOBIN 10.7 g/dL (12.6-16.3); MEAN CELL HEMOGLOBIN 33.2 pg (27.9-34.1); MEAN CELL HEMOGLOBIN CONCENTR. 34.2 g/dL (32.4-36.7); MEAN CELL VOLUME 97.2 fL (81.5-99.8); RED BLOOD CELL COUNT 3.22 10^6/uL (4.18-5.33); RED CELL DISTRIBUTION WIDTH 13.3 % (11.5-15.2)
[2016-11-12 04:40] LABS: ANION GAP 6 mEq/L (8-16); CALCIUM 8.2 mg/dL (8.5-10.4); CARBON DIOXIDE 22 mEq/l (22-31); CHLORIDE 105 mEq/L (97-110); CREATININE 0.8 mg/dL (0.6-1.0); GLOMERULAR FILTRATION RATE > 60; GLUCOSE 84 mg/dL (70-100); POTASSIUM 4.4 mEq/L (3.5-5.2); SODIUM 133 mEq/L (134-144)
--- NOTE | 2016-11-12 07:50 | SOAPPROG ---
SOAP Progress Note Assessment/Plan: Assessment: 1) Metastatic breast cancer 2) Bone pain secondary to sacral metastatic disease. (s/p recent palliative XRT) 3). Treatment related anemia, thrombocytopenia Plan: Patient's pain is better with Neurontin. She would like to potentially discharged later today if her pain remains controlled with activity. She is due tomorrow for Faslodex at [facility], and has an outpatient appt. in 2 weeks. Hopefully she will get some gradual improvement over time from her recent palliative XRT which was completed on 10/25. Patient's questions answered. 11/12/16 07:47 11/12/16 07:51 Subjective: Reports pain in right gluteal region. Now rates this as a 2/10. Improved with Neurontin. Objective: Vital Signs Temp Pulse Resp BP Pulse Ox 37.0 C 70 18 152/66 H 99 11/12/16 04:18 11/12/16 04:18 11/12/16 04:18 11/12/16 04:18 11/12/16 04:18 Laboratory Results 11/12/16 04:12 11/12/16 04:12 11/11/16 11/12/16 11/13/16 05:59 05:59 05:59 Intake Total 700 950 Output Total 1000 400 Balance -300 550 - Time Spent With Patient Time Spent With Patient: 25 minutes Physical Exam - Physical Exam General Appearance: alert, no apparent distress Neuro/Psych: no motor/sensory deficits, alert, normal mood/affect ICD10 Worksheet Patient Problems: Problems Problem Status Onset Malignant neoplasm of sacrum Acute Metastatic breast cancer Acute
[2016-11-12] MEDS: GABAPENTIN 300 MG CAP PO SCH (08:33)
[2016-11-12] MEDS: METHOCARBAMOL 750 MG TAB PO SCH ×3 (08:33→22:20)
[2016-11-12] MEDS: morphINE SR 15 MG TAB PO SCH ×2 (08:33→18:50)
[2016-11-12] MEDS: ENOXAPARIN 40 MG/0.4 ML SYR SC SCH (08:36)
[2016-11-12] MEDS: PALBOCICLIB 125 MG PO SCH (08:44)
[2016-11-12] MEDS: MINERALS PO SCH (08:58)
[2016-11-12] MEDS: MAGNESIUM OXIDE 250 MG PO SCH (08:58)
[2016-11-12] MEDS: VITS A C E PO SCH (08:58)
[2016-11-12] MEDS: LUTEIN PO SCH (08:58)
[2016-11-12] MEDS: CALCIUM CITRATE PO SCH (08:59)
[2016-11-12] MEDS: VIT D PO SCH (08:59)
--- NOTE | 2016-11-12 10:36 | HOSPPROG ---
Hospitalist Progress Note Assessment/Plan: Acute on chronic back and sacral pain secondary to osseous metastases - Improving with Neurontin, will increase hs dose to 600 mg. Cont MS Contin and Morphine IR prn. Stage IV breast cancer - MRI reviewed, extensive metastases. Cont current chemo regimen, has appt at [facility] for Faslodex injection in am. Hypoxemia - was likely atelectatic, now resolved, on room air. Thrombocytopenia - likely secondary to chemo, follow. Hypothyroidism - Cont Levothyroxine. Pressure injury of sacrum and heels - wound care following. Full code Dispo - cont inpt Subjective: Pt reports she "showed off" with OT this am and has increased pain. Overall, improved though with neurontin. Wants to go home in am. Objective: Vital Signs Temp Pulse Resp BP Pulse Ox 36.6 C 71 20 127/72 H 95 11/12/16 09:46 11/12/16 09:46 11/12/16 09:46 11/12/16 09:46 11/12/16 09:46 Laboratory Results 11/12/16 04:12 11/12/16 04:12 11/11/16 11/12/16 11/13/16 05:59 05:59 05:59 Intake Total 700 950 Output Total 1000 400 Balance -300 550 - Physical Exam Constitutional: no apparent distress Eyes: PERRL Ears, Nose, Mouth, Throat: moist mucous membranes Cardiovascular: regular rate and rhythym Respiratory: no respiratory distress, clear to auscultation Gastrointestinal: normoactive bowel sounds, soft, non-tender abdomen Skin: warm Musculoskeletal: full muscle strength Neurologic: AAOx3 Psychiatric: interacting appropriately ICD10 Worksheet Patient Problems: Problems Problem Status Onset Malignant neoplasm of sacrum Acute Metastatic breast cancer Acute
--- NOTE | 2016-11-12 15:07 | PDPCPN ---
Palliative Care Progress Note Assessment/Plan: Referring provider: Dr Perez Reason for consult: Complex medical decision making Symptom control HPI: Beulah Anthony is a 70 yo female with PMH breast cancer with mets to bone admitted to the hospital for uncontrollable right sacral pain. Finished radiation for symptom management 10/25 on immunotherapy with increasing pain. Since admission started on gabapentin and robaxin which has helped her pain a lot. She also continues on MScontin 15mg Q12hr with MS IR 15mg PRN. Palliative care consulted for complex medical decision making. Met with Beulah and her Chris at the bedside this morning. Beulah states her pain is improving although still not quite tolerable. She feels the gabapentin and robaxin are helping a lot. She has tried topical voltaren in the past for knee pain with no relief. She has also tried lidocaine patches to the right buttocks which seem to work and has some at home. We also spoke about OTC topical lidocaine cream which she has in 4%. She feels the most frustrating thing about her pain is not being able to move around a bit. She is a very independent person and would like to be able to do things for herself but finds her pain is not consistent and constantly changing which makes it hard to tolerate. Assessment: Physical: - Pain: right buttocks pain - on scheduled morphine with PRN - on gabapentin and robaxin - consider adding topical lidocaine to help (has supply at home) - constipation - at risk with opiates - continue bowel regimen with senna and colace Emotional/psychological: has a lot of support from her Advanced Care Planning: Is patient decisional?: Yes Code Status: Full MD POA: unsure who is MDPOA. Plan: To increase gabapentin tonight, does not want to make too many changes. She is hoping to go home tomorrow and is aware if needed outpt palliative care can be provided. Subjective: my pain is improving Objective: Social History: to Chris for 46 years, no children. Worked as a high school guidance counselor. Medication list reviewed ROS: General: fatigue, weakness ENT: negative Resp: negative GI: negative : negative MS: right buttocks pain Skin: negative Neuro: negative Psych: negative Functional assessment: PPS: 60% Functional status: independent with ADLs. Needs some assistance with ambulation Vital Signs Temp Pulse Resp BP Pulse Ox 36.6 C 71 20 127/72 H 95 11/12/16 09:46 11/12/16 09:46 11/12/16 09:46 11/12/16 09:46 11/12/16 09:46 Laboratory Results 11/12/16 04:12 11/12/16 04:12 11/11/16 11/12/16 11/13/16 05:59 05:59 05:59 Intake Total 700 950 Output Total 1000 400 Balance -300 550 Physical Exam - Physical Exam General Appearance: alert, no apparent distress Respiratory: No respiratory distress, No accessory muscle use Skin: normal color, warm/dry Extremities: No pedal edema Neuro/Psych: alert, oriented x 3 ICD10 Worksheet Patient Problems: Problems Problem Status Onset Malignant neoplasm of sacrum Acute Metastatic breast cancer Acute Palliative care encounter Acute - ICD10 Problem Qualifiers (1) Palliative care encounter
[2016-11-12] MEDS ORDERED: FLU VACC QS 2017-18 (3YR+)/PF 0.5 ML SYR (FLUARIX QUAD) IM ONE ×2 (16:35→19:00)
[2016-11-12] MEDS ORDERED: GABAPENTIN 300 MG CAP PO SCH (21:00)
[2016-11-13 05:04] VITALS: O2SAT 94
[2016-11-13] MEDS: morphINE SR 15 MG TAB PO SCH (06:27)
[2016-11-13] MEDS: LEVOTHYROXINE 88 MCG TAB PO SCH (06:27)
[2016-11-13] MEDS: METHOCARBAMOL 750 MG TAB PO SCH (07:58)
[2016-11-13] MEDS: ENOXAPARIN 40 MG/0.4 ML SYR SC SCH (07:59)
[2016-11-13] MEDS ORDERED: PALBOCICLIB 125 MG PO SCH (08:00)
[2016-11-13] MEDS: CALCIUM CITRATE PO SCH (08:57)
[2016-11-13] MEDS: VIT D PO SCH (08:57)
[2016-11-13] MEDS ORDERED: GABAPENTIN 300 MG CAP PO SCH (09:00)
[2016-11-13 09:34] VITALS: BP 100/54; PULSE 80; RESP 18; TEMP 98.6
[2016-11-13] MEDS ORDERED: MAGNESIUM OXIDE 250 MG PO SCH (10:00)
[2016-11-13] MEDS ORDERED: LUTEIN PO SCH (10:00)
[2016-11-13] MEDS ORDERED: VITS A C E PO SCH (10:00)
[2016-11-13] MEDS ORDERED: MINERALS PO SCH (10:00)
--- NOTE | 2016-11-13 11:09 | ASMTCMCOM ---
CM Note CM Note Notes: Spoke with patient and spouse about the possibility of home care. They were very open to it and felt that skilled support at home would be very helpful. Decided they would like [facility] home care PT and RN. They said if needed they would add to it with private duty care. [facility] notified and will start care on 11/14/2016. Discussed with Dr. Perez. Pt discharged with spouse. Date Signed: 11/13/2016 11:09 AM Electronically Signed By:JEZ Marcum
--- NOTE | 2016-11-13 19:28 | GDS ---
[f rep st] DISCHARGE SUMMARY DISCHARGE DIAGNOSES: 1. Acute on chronic back and sacral pain secondary to osseous metastases. 2. Stage IV breast cancer. 3. Hypoxemia, likely atelectatic, resolved. 4. Thrombocytopenia secondary to chemotherapy. 5. Hypothyroidism. 6. Pressure injury to sacrum and heels. 7. Right upper extremity lymphedema. CONSULTANTS: Dr. Ciera Lopez, Oncology. HISTORY: For details, please see the history and physical dated November 10. In brief, the patient is a 70-year-old female with a history of stage IV breast cancer, who presents to the emergency depa rtment with increasing pain and inability to ambulate. She was admitted to the hospital for pain con trol. HOSPITAL COURSE: Patient was admitted to the medical-surgical unit. MRI of the lumbar spine and pel vis was obtained, which revealed extensive osseous metastatic disease throughout the lumbar spine and sacrum, most severely in the upper sacrum where there was extensive marrow replacement associated wi th enhancement and extension of enhancement into the epidural space over the sacral spinal canal, as well as multiple intraosseous metastases throughout the lumbar spine, without extension into the lumb ar spinal canal. She has reportedly not received good pain control with opioid therapy. She was sta rted on Neurontin, and her dose was up titrated. This did significantly improve her pain. She was a ble to transfer and ambulate, though may require ongoing up titration of the gabapentin. Oncology co nsult was obtained. Most recently, she has been started on fulvestrant and Ibrance on October 30, 017. In addition, Zometa was started on October 30 due to her extensive osseous mets. She had rece ntly completed a high-dose regimen of steroids followed by a taper. Thus, steroids were not resumed. Fortunately, there was no evidence of cord compression or epidural tumor extension, but likely her tumor is causing compression of her nerve roots, which is contributing to her pain. She was discharg ed home this morning in anticipation of her appointment for Abigail at the [facility]. She recently underwent palliative radiation therapy completed on October 25. The plan is for he r to have close outpatient followup with her oncologist and her primary care physician. DISPOSITION: Patient is discharged home in stable condition. FOLLOWUP: 1. Dr. Jose Shahid, primary care. 2. Dr. Diya Aguiar, oncology. DISCHARGE MEDICATIONS: Please see [facility] for completed outpatient medication list. She will yumiko nue all outpatient medications as previously prescribed, including MS-Contin and short-acting morphin e for pain. New medications include: 1. Gabapentin 300 mg p.o. q.a.m., 300 mg q. afternoon and 600 mg q.h.s. at bedtime, #120, no refills . 2. Robaxin 750 mg p.o. t.i.d. p.r.n., #90, no refills. /[id number]/MODL
== END 2016-11-13 10:30 | disposition home health service (06) | DRG 543 ==
LOC: EDUNIT# → F1N 11:06
PROVIDERS: ADMIT Hospitalist; ATTEND Hospitalist
DX: C79.51 Secondary malignant neoplasm of bone (principal); J98.11 Atelectasis; C79.89 Secondary malignant neoplasm of other specified sites; C50.919 Malignant neoplasm of unspecified site of unspecified female breast; R09.02 Hypoxemia; E03.9 Hypothyroidism, unspecified; D69.59 Other secondary thrombocytopenia; D64.81 Anemia due to antineoplastic chemotherapy; L89.159 Pressure ulcer of sacral region, unspecified stage; L89.619 Pressure ulcer of right heel, unspecified stage; L89.629 Pressure ulcer of left heel, unspecified stage; Z87.891 Personal history of nicotine dependence; G89.3 Neoplasm related pain (acute) (chronic); Z23 Encounter for immunization
CPT/HCPCS: 96374; 97165-GO; 97535-GO; A9585; G0008; J1100; J1170; J1650

== ENCOUNTER → 2016-11-27 | Outpatient (CLI) | payer OTHER | LOC: FIMAGING 10:52 | PROVIDERS: ATTEND Nurse Practitioner | DX: I82.411 Acute embolism and thrombosis of right femoral vein (principal); I82.431 Acute embolism and thrombosis of right popliteal vein; C79.51 Secondary malignant neoplasm of bone; C50.919 Malignant neoplasm of unspecified site of unspecified female breast ==

== ENCOUNTER 2017-01-05 13:16 | Emergency (ER) | payer OTHER ==
[2017-01-05 13:24] VITALS: RESP 18; TEMP 98.4
--- NOTE | 2017-01-05 13:59 | EDPHY ---
H & P Time Seen by Provider: 01/05/17 13:44 HPI/ROS: CHIEF COMPLAINT: Chills and fever HISTORY OF PRESENT ILLNESS: This 71-year-old woman has a history of stage IV breast cancer and is currently getting chemotherapy last on December 25. She presents today with feeling chills and cold and a temperature up to 100.4 at home. This is not associated with vomiting or diarrhea or skin rash or cough or sore throat. She is very thirsty and feels dehydrated. Decreased oral appetite and intake today. REVIEW OF SYSTEMS: Eye: no change in vision ENT: no sore throat Cardiac: no chest pain or syncope Pulmonary: no cough or SOB Abdomen: no vomiting, diarrhea, abdominal pain Musculoskeletal: Back pain unchanged from usual Skin: no rash Neuro: no headache Constitutional: HPI : no urinary symptoms A comprehensive 10 point review of systems is otherwise negative aside from elements mentioned in the history of present illness. PAST MEDICAL HISTORY: Breast cancer as above, chronic back pain, hypothyroid Social history: here with spouse General Appearance: Alert and conversant, cooperative. Eyes: No scleral icterus. ENT, Mouth: Dry mucous membranes Respiratory: Normal respiratory effort, breath sounds equal, lungs are clear to auscultation. Cardiovascular: Regular rate and rhythm. Gastrointestinal: Abdomen is soft and non tender. Neurological: Alert and oriented x3. Normally conversant. Face symmetric, normal movement and sensation in all extremities. Skin: Warm and dry, no rashes. Musculoskeletal: No peripheral edema and no joint swelling. Psychiatric: Not agitated. Emergency Department course/MDM: Sepsis screening with lactate. Urinalysis and chest x-ray. Blood cultures and labs to include white blood cell count to evaluate for neutropenia. Influenza testing. 1605: Discussed with Rizwan Aguiar, recommends IV hydration and discharged home without antibiotics or other therapy additionally. Results discussed with the patient, she would like to go home which I think is reasonable. Smoking Status: Former smoker Constitutional: Initial Vital Signs Temperature (C) 36.9 C 01/05/17 13:21 Heart Rate 91 01/05/17 13:21 Respiratory Rate 18 01/05/17 13:21 Blood Pressure 137/86 H 01/05/17 13:21 O2 Sat (%) 95 01/05/17 13:21 O2 Delivery Mode Room Air Allergies/Adverse Reactions: nitrofurantoin macrocrystalline [From Macrodantin] Allergy (Severe, Verified 16:46) JAUNDICE Sulfa (Sulfonamide Antibiotics) Allergy (Severe, Verified 09/13/16 16:46) JAUNDICE adhesive tape Allergy (Intermediate, Verified 09/13/16 16:46) TEARS SKIN OFF ibuprofen Allergy (Intermediate, Verified 09/13/16 16:46) BACKACHE/STOMACH ACHE CRAB Allergy (Severe, Uncoded 09/13/16 16:46) Anaphylaxis LOBSTER Allergy (Severe, Uncoded 09/13/16 16:46) Anaphylaxis nitrofurantoin macrocrystalline Allergy (Unknown, Uncoded 11/21/16 16:38) JAUNDICE Home Medications: Medication Instructions Recorded Levothyroxine [Synthroid 88 mcg 88 mcg PO DAILY06 08/28/16 (*)] Calcium Citrate W/Vit D [Citracal 1 tab PO DAILY 11/10/16 + D] Fulvestrant [Faslodex] 500 mg IM ONCE 11/10/16 Morphine Sulfate [Morphine Sulfate 15 mg PO Q12H 11/10/16 ER] Palbociclib [Ibrance] 125 mg PO DAILY 11/10/16 Vits A,C,E/Lutein/Minerals 1 each PO DAILY 11/10/16 [Ocuvite with Lutein Tablet] morphINE IR [morphINE IR 15 mg (*)] 15 mg PO Q3H 11/10/16 Lyrica 01/05/17 Magnesium Citrate 01/05/17 Nystatin 01/05/17 Oxycodone HCl 01/05/17 Xarelto 01/05/17 Medical Decision Making - Diagnostics Imaging Results: Imaging Impressions Chest X-Ray 01/05/17 13:58 Impression: 1. History of metastatic breast cancer with osseous sclerotic rib lesions and healing left peripheral lateral fourth and right second anterior rib fracture sites. 2. COPD with mild perihilar bronchitis, but no convincing focal infiltrate. - Data Points Laboratory Results: Laboratory Results 01/05/17 13:50 01/05/17 13:50 01/05/17 01/05/17 01/05/17 15:45 14:20 13:50 WBC RBC Hgb Hct MCV MCH MCHC RDW Plt Count MPV Neut % (Auto) Lymph % (Auto) Alfalfa % (Auto) Eos % (Auto) Baso % (Auto) Nucleat RBC Rel Count Absolute Neuts (auto) Absolute Lymphs (auto) Absolute Monos (auto) Absolute Eos (auto) Absolute Basos (auto) Absolute Nucleated RBC Immature Gran % Immature Gran # PT 16.1 SEC H SEC (12.0-15.0) INR 1.29 H (0.83-1.16) APTT 32.2 SEC SEC (23.0-38.0) VBG Lactic Acid Sodium Potassium Chloride Carbon Dioxide Anion Gap BUN Creatinine Estimated GFR Glucose Calcium Total Bilirubin Urine Color YELLOW Urine Appearance CLEAR Urine pH 7.0 (5.0-7.5) Ur Specific Orient 1.008 (1.002-1.030) Urine Protein NEGATIVE (NEGATIVE) Urine Ketones 1+ H (NEGATIVE) Urine Blood NEGATIVE (NEGATIVE) Urine Nitrate NEGATIVE (NEGATIVE) Urine Bilirubin NEGATIVE (NEGATIVE) Urine Urobilinogen NEGATIVE EU EU (0.2-1.0) Ur Leukocyte Esterase NEGATIVE (NEGATIVE) Urine Glucose NEGATIVE (NEGATIVE) Nasal Influenza A PCR NEGATIVE FOR FLU A (NEGATIVE) Nasal Influenza B PCR NEGATIVE FOR FLU B (NEGATIVE) 01/05/17 01/05/17 01/05/17 13:50 13:50 13:50 WBC 4.05 10^3/uL 10^3/uL (3.80-9.50) RBC 3.03 10^6/uL L 10^6/uL (4.18-5.33) Hgb 11.6 g/dL L g/dL (12.6-16.3) Hct 32.5 % L % (38.0-47.0) MCV 107.3 fL H fL (81.5-99.8) MCH 38.3 pg H pg (27.9-34.1) MCHC 35.7 g/dL g/dL (32.4-36.7) RDW 19.2 % H % (11.5-15.2) Plt Count 278 10^3/uL 10^3/uL (150-400) MPV 9.7 fL fL (8.7-11.7) Neut % (Auto) 85.7 % H % (39.3-74.2) Lymph % (Auto) 5.9 % L % (15.0-45.0) Alfalfa % (Auto) 7.2 % % (4.5-13.0) Eos % (Auto) 0.0 % L % (0.6-7.6) Baso % (Auto) 0.5 % % (0.3-1.7) Nucleat RBC Rel Count 0.0 % % (0.0-0.2) Absolute Neuts (auto) 3.47 10^3/uL 10^3/uL (1.70-6.50) Absolute Lymphs (auto) 0.24 10^3/uL L 10^3/uL (1.00-3.00) Absolute Monos (auto) 0.29 10^3/uL L 10^3/uL (0.30-0.80) Absolute Eos (auto) 0.00 10^3/uL L 10^3/uL (0.03-0.40) Absolute Basos (auto) 0.02 10^3/uL 10^3/uL (0.02-0.10) Absolute Nucleated RBC 0.00 10^3/uL 10^3/uL (0-0.01) Immature Gran % 0.7 % % (0.0-1.1) Immature Gran # 0.03 10^3/uL 10^3/uL (0.00-0.10) PT INR APTT VBG Lactic Acid 2.3 mmol/L H mmol/L (0.7-2.1) Sodium 137 mEq/L mEq/L (134-144) Potassium 4.8 mEq/L mEq/L (3.5-5.2) Chloride 98 mEq/L mEq/L (97-110) Carbon Dioxide 23 mEq/l mEq/l (22-31) Anion Gap 16 mEq/L mEq/L (8-16) BUN 7 mg/dL mg/dL (7-23) Creatinine 0.8 mg/dL mg/dL (0.6-1.0) Estimated GFR > 60 Glucose 120 mg/dL H mg/dL (70-100) Calcium 9.3 mg/dL mg/dL (8.5-10.4) Total Bilirubin 1.1 mg/dL mg/dL (0.1-1.4) Urine Color Urine Appearance Urine pH Ur Specific Orient Urine Protein Urine Ketones Urine Blood Urine Nitrate Urine Bilirubin Urine Urobilinogen Ur Leukocyte Esterase Urine Glucose Nasal Influenza A PCR Nasal Influenza B PCR Medications Given: Discontinued Medications Sodium Chloride (Ns) 2,000 mls @ 4,000 mls/hr 30 ml/kg infuse over 30 min ( 2000 ml) IV EDNOW ONE PRN Reason: Protocol Stop: 01/05/17 14:54 Last Admin: 01/05/17 14:36 Dose: 2,000 mls Departure - Departure Disposition: Home, Routine, Self-Care Clinical Impression: Chills Condition: Good Instructions: Fever in Adults (ED) Referrals: Kishor Aguiar MD [Primary Care Provider] - As per Instructions
[2017-01-05 14:07] LABS: % IMMATURE GRANULYOCYTES 0.7 % (0.0-1.1); ABSOLUTE IMMATURE GRANULOCYTES 0.03 10^3/uL (0.00-0.10); ADD DIFF? NO; ADD MORPH? NO; ADD SCAN? YES; ATYPICAL LYMPHOCYTE FLAG 0 (0-99); FRAGMENT RBC FLAG 0 (0-99); HEMATOCRIT 32.5 % (38.0-47.0); HEMOGLOBIN 11.6 g/dL (12.6-16.3); LEFT SHIFT FLG 0 (0-99); LIPEMIA HEMOLYSIS FLAG 90 (0-99); MEAN CELL HEMOGLOBIN 38.3 pg (27.9-34.1); MEAN CELL HEMOGLOBIN CONCENTR. 35.7 g/dL (32.4-36.7); MEAN CELL VOLUME 107.3 fL (81.5-99.8); MEAN PLATELET VOLUME 9.7 fL (8.7-11.7); PLATELET CLUMPS FLAG 0 (0-99); PLATELET COUNT 278 10^3/uL (150-400); RED BLOOD CELL COUNT 3.03 10^6/uL (4.18-5.33); RED CELL DISTRIBUTION WIDTH 19.2 % (11.5-15.2)
[2017-01-05 14:16] LABS: ANION GAP 16 mEq/L (8-16); BILIRUBIN,TOTAL 1.1 mg/dL (0.1-1.4); CALCIUM 9.3 mg/dL (8.5-10.4); CARBON DIOXIDE 23 mEq/l (22-31); CHLORIDE 98 mEq/L (97-110); CREATININE 0.8 mg/dL (0.6-1.0); GLOMERULAR FILTRATION RATE > 60; GLUCOSE 120 mg/dL (70-100); POTASSIUM 4.8 mEq/L (3.5-5.2); SODIUM 137 mEq/L (134-144)
[2017-01-05 14:22] LABS: INR 1.29 (0.83-1.16); PROTIME(PATIENT) 16.1 SEC (12.0-15.0)
[2017-01-05 14:23] LABS: APTT 32.2 SEC (23.0-38.0)
[2017-01-05 14:28] LABS: SCAN NEGATIVE
[2017-01-05] MEDS: NS 2,000 ML IV ONE (14:36)
[2017-01-05 15:00] LABS: LACGHOST ORDER
[2017-01-05 15:54] LABS: COLOR YELLOW; LEUKOCYTE ESTERASE,URINE NEGATIVE (NEGATIVE); NITRITE,URINE NEGATIVE (NEGATIVE)
[2017-01-05 16:25] VITALS: BP 132/70; PULSE 74; O2SAT 97
== END 2017-01-05 16:23 | disposition home or self-care (01) ==
DX: R50.9 Fever, unspecified (principal); E86.9 Volume depletion, unspecified; Z85.3 Personal history of malignant neoplasm of breast; Z87.891 Personal history of nicotine dependence

== ENCOUNTER 2017-01-11 13:23 | Emergency (ER) | payer OTHER ==
[2017-01-11 13:47] VITALS: RESP 16; TEMP 98.6
--- NOTE | 2017-01-11 15:56 | EDPHY ---
H & P Time Seen by Provider: 01/11/17 15:21 HPI/ROS: CHIEF COMPLAINT: Right leg swelling HISTORY OF PRESENT ILLNESS: Patient is a 71-year-old female with a history of a right leg DVT currently taking Xarelto who presents emergency department with mildly increased swelling of her right lower extremity. Patient states she noted the swelling for the past 2-3 days. She has no pain. No chest pain or shortness of breath. No other complaints. She called her primary care physician, Dr. Shahid, who recommended she come to the emergency department for an ultrasound. REVIEW OF SYSTEMS: My complete review of systems is negative except as mentioned in the HPI. Past Medical/Surgical History: Includes hypothyroidism, DVT, breast cancer with metastatic disease Past surgical history: Lumpectomy with lymph node removal Social history: The patient is here with her care provider Smoking Status: Former smoker Physical Exam: 37, 143/52, 60, 16, 97% on room air GENERAL: Well-appearing, in no acute distress, alert. HEENT: Eyes normal to inspection, normal pharynx, no signs of dehydration. NECK: No thyromegaly, no lymphadenopathy, supple. RESPIRATORY: Clear to auscultation bilaterally, no rales, rhonchi or wheezing. CVS: Regular rate and rhythm, no rubs, murmurs, or gallops. ABDOMEN: Soft, nontender, nondistended, no organomegaly. BACK: Normal to inspection, no CVA tenderness. SKIN: Normal color, no rash, warm, dry. No pallor. EXTREMITIES: Patient has mild discoloration of both feet. The patient in her care provider states this is her baseline. She has a strong DP pulse with brisk capillary refill. There is mild increased pedal edema in the right lower extremity when compared the left. There is old bruising on both shins. No calf tenderness, no Homans sign or cords, no joint swelling. NEURO/PSYCH: Alert and oriented x3, normal mood and affect, normal motor sensory exam. Constitutional: Initial Vital Signs Temperature (C) 37.0 C 01/11/17 13:40 Heart Rate 68 01/11/17 13:40 Respiratory Rate 16 01/11/17 13:40 Blood Pressure 143/52 H 01/11/17 13:40 O2 Sat (%) 97 01/11/17 13:40 O2 Delivery Mode Room Air Allergies/Adverse Reactions: nitrofurantoin macrocrystalline [From Macrodantin] Allergy (Severe, Verified 16:46) JAUNDICE Sulfa (Sulfonamide Antibiotics) Allergy (Severe, Verified 09/13/16 16:46) JAUNDICE adhesive tape Allergy (Intermediate, Verified 09/13/16 16:46) TEARS SKIN OFF ibuprofen Allergy (Intermediate, Verified 09/13/16 16:46) BACKACHE/STOMACH ACHE CRAB Allergy (Severe, Uncoded 09/13/16 16:46) Anaphylaxis LOBSTER Allergy (Severe, Uncoded 09/13/16 16:46) Anaphylaxis nitrofurantoin macrocrystalline Allergy (Unknown, Uncoded 11/21/16 16:38) JAUNDICE Home Medications: Medication Instructions Recorded Levothyroxine [Synthroid 88 mcg 88 mcg PO DAILY06 08/28/16 (*)] Calcium Citrate W/Vit D [Citracal 1 tab PO DAILY 11/10/16 + D] Fulvestrant [Faslodex] 500 mg IM ONCE 11/10/16 Morphine Sulfate [Morphine Sulfate 15 mg PO Q12H 11/10/16 ER] Palbociclib [Ibrance] 125 mg PO DAILY 11/10/16 Vits A,C,E/Lutein/Minerals 1 each PO DAILY 11/10/16 [Ocuvite with Lutein Tablet] morphINE IR [morphINE IR 15 mg (*)] 15 mg PO Q3H 11/10/16 Lyrica 01/05/17 Magnesium Citrate 01/05/17 Nystatin 01/05/17 Oxycodone HCl 01/05/17 Xarelto 01/05/17 Medical Decision Making - Diagnostics Imaging Results: Imaging Impressions Extremity Venous Study 01/11/17 14:04 Impression: 1. No new deep venous thrombosis. 2. Known left lower extremity deep venous thrombosis has partially recannulized since November 2016. Findings discussed with Emergency Department physician, Mei Bean MD at 01/11/2017 15:08. ED Course/Re-evaluation: In the emergency department ultrasound was ordered. Ultrasound: Please refer the dictated report by Dr. Gan. No new deep venous thrombosis. No right lower extremity deep vein thrombosis that is partially recanalized since November 2017. I discussed the dictated report with Dr. Gan. On the dictated report he mentioned the left lower extremity. However, the patient had a previous DVT on the right lower extremity and ultrasound today was performed on the right lower extremity. I discussed the results with the patient. I answered all her questions. She is given warnings prior to leaving. She will follow up with Dr. Shahid. Differential Diagnosis: My differential includes but is not limited to DVT, CHF, lymphedema, cellulitis , arterial occlusion Departure - Departure Disposition: Home, Routine, Self-Care Clinical Impression: Pedal edema Condition: Good Instructions: Edema (ED) Additional Instructions: Return with increasing pain, swelling, shortness of breath, fever or any other concerns. Your ultrasound did not show any new DVT Referrals: Jose Shahid MD [Primary Care Provider] - 2-3 days, call for appt.
[2017-01-11 16:06] VITALS: BP 144/70; PULSE 78; O2SAT 92
== END 2017-01-11 16:05 | disposition home or self-care (01) ==
DX: R60.0 Localized edema (principal); Z79.01 Long term (current) use of anticoagulants; Z85.3 Personal history of malignant neoplasm of breast; Z87.891 Personal history of nicotine dependence